=== PATIENT | male | born 1955 | race Caucasian/White ===

== ENCOUNTER 2017-09-06 08:09 | Emergency (ER) | END 2017-09-06 18:00 | disposition home or self-care (01) ==

== ENCOUNTER 2017-10-29 09:05 | Emergency (ER) | END 2017-10-29 13:15 | disposition home or self-care (01) ==

== ENCOUNTER 2018-04-25 09:38 | Emergency (ER) | END 2018-04-25 13:45 | disposition home or self-care (01) ==